=== PATIENT | male | born 1980 | race Caucasian/White ===

== ENCOUNTER 2019-05-28 07:53 | Outpatient (CLI) | payer OTHER ==
--- NOTE | 2019-05-28 09:57 | CT ---
ABDOMEN AND PELVIC CT SCAN WITH iv CONTRAST: HISTORY: Inguinal hernia, palpable finding on left. FINDINGS: Lung bases are clear. The visualized liver, gallbladder, pancreas, and spleen are unremarkable. The re is some dense calcification in the left adrenal gland without evidence for an associated mass. Th e kidneys show no renal calculus or acute obstruction. No solid or cystic mass. No CT evidence f or acute appendicitis. The urinary bladder appears unremarkable. There is no evidence for bowel con taining or fat containing left inguinal hernia. No abscess or adenopathy or abnormal fluid collectio n within the abdomen or pelvis. There appear to be minimal sigmoid colon diverticulosis without dive rticulitis. IMPRESSION: Some dense calcification in the left adrenal gland without evidence for an associated mass. No evide nce for a left inguinal hernia or other soft tissue mass to account for a palpable finding in the lef t groin. Minimal sigmoid colon diverticulosis without acute diverticulitis. POS: [facility]
[2019-05-28] MEDS ORDERED: ISOVUE-370 76%-LOCM 1 ML ONE (10:48)
== END 2019-05-28 07:54 | disposition home or self-care (01) ==
LOC: BICCT 07:53
PROVIDERS: ATTEND Emergency Medicine
DX: K40.90 Unilateral inguinal hernia, without obstruction or gangrene, not specified as recurrent (principal); K57.30 Diverticulosis of large intestine without perforation or abscess without bleeding; E27.49 Other adrenocortical insufficiency
CPT/HCPCS: 74177; Q9966

== ENCOUNTER 2019-06-19 06:39 | Day surgery (SDC) | payer BC ==
[2019-06-10 15:12] VITALS: BMI 21.2
[2019-06-19] MEDS ORDERED: ceFAZolin Sodium (SDC) 2 GM/100 ML BAG ONE (07:31)
[2019-06-19] MEDS ORDERED: Bupivacaine/Epinephrine 0.25% 30 ML VIAL ONE (08:53)
[2019-06-19] MEDS ORDERED: Fentanyl 100 MCG/2 ML VIAL ONE ×2 (09:03→11:01)
--- NOTE | 2019-06-19 10:36 | OP ---
DATE OF PROCEDURE: 06/19/2019 PREOPERATIVE DIAGNOSIS: Left inguinal hernia. POSTOPERATIVE DIAGNOSIS: Left inguinal hernia. PROCEDURE PERFORMED: Laparoscopic left inguinal hernia repair with mesh, Bard 3DMax, large. ANESTHESIA: General. ESTIMATED BLOOD LOSS: Minimal. COMPLICATIONS: None. FINDINGS: Left inguinal hernia. DESCRIPTION OF PROCEDURE: The patient was taken to the operating room and laid supine on the operating room table. After general anesthetic was obtained, a Robertson was placed. The abdomen was shaved, prepped, and draped in a sterile fashion. A curved incision was made below the umbilicus. Cautery was dissected down and score the fascia. Abdominal cavity was entered bluntly using a Ashley clamp and the 11-mm balloon trocar was placed. High-flow pneumoperitoneum was obtained. The patient was placed in Trendelenburg position. Left and right abdominal 8-mm trocars were placed. All ports were docked to the robot. Surgeon goes to the console. The peritoneum was taken down the left lower quadrant. Cautery was dissected down into the preperitoneal space. The preperitoneal was bluntly dissected to the pubic tubercle medially and anterior superior iliac crest laterally. The shelving edges were fully exposed. The indirect hernia was dissected away from the other cord structures high up on to the peritoneum. The 3DMax large mesh was brought into the sterile field and the M-labelled medial aspect was placed over pubic tubercle medially and the mesh was laid out to cover the indirect, direct, and femoral areas. The mesh was sewn via Vicryl to the pubic tubercle medially and to the posterior fascia laterally. The peritoneum was reapproximated using 3-0 Stratafix. All needles were removed from the abdomen and accounted for. All port sites were infiltrated using local anesthetic. All ports were removed under direct visualization. Pneumoperitoneum was let down. PDS was used to close the fascial defect above the umbilicus. All incisions were irrigated and closed using 4-0 Monocryl and Dermabond. The patient was sent to Recovery in stable condition. All sponge counts, needle counts, and lap counts were correct. Job ID: [id number]
[2019-06-19] MEDS ORDERED: Morphine 2 MG/ML SYRINGE ONE (12:31)
[2019-06-19] MEDS ORDERED: HYDROcodone/Acetaminophen 5/325 mg Tablet ONE (14:10)
== END 2019-06-19 16:35 | disposition home or self-care (01) ==
LOC: SDC 06:39
PROVIDERS: ATTEND Surgery
PROC: 0YU64JZ Supplement Left Inguinal Region with Synthetic Substitute, Percutaneous Endoscopic Approach (ICD-10-PCS; principal; 2019-06-19)
DX: K40.90 Unilateral inguinal hernia, without obstruction or gangrene, not specified as recurrent (principal)
CPT/HCPCS: C1781; J0690; J2270; J3010